=== PATIENT | female | born 1945 | race Hispanic/Latino ===

== ENCOUNTER 2019-01-08 09:12 | Outpatient (CLI) | payer MEDICARE | END 2019-01-08 09:13 | disposition home or self-care (01) | LOC: C.PAT 09:12 | DX: C78.7 Secondary malignant neoplasm of liver and intrahepatic bile duct (principal); Z85.038 Personal history of other malignant neoplasm of large intestine ==

== ENCOUNTER 2019-01-11 08:00 | Inpatient (IN) | payer OTHER ==
[2019-01-08 09:28] VITALS: BMI 23.1
[2019-01-12] MEDS ORDERED: Lidocaine Hydrochloride 0 ML INJ ONE (08:06)
[2019-01-12] MEDS ORDERED: ceFAZolin 1 gm in NS 1 GM/100 ML BAG IVPB ONE ×2 (08:06→13:08)
[2019-01-12] MEDS ORDERED: Bupivacaine 0.25% 20 ML INJ IJ ONE (08:06)
[2019-01-12] MEDS ORDERED: Lidocaine/Epinephrine 1% 1:100000 10 ML IJ ONE (08:07)
[2019-01-12] MEDS ORDERED: Rocuronium 10 mg/ml (5 ml) ONE ×2 (08:09→11:01)
[2019-01-12] MEDS ORDERED: Succinylcholine Chloride 20 mg/ml Syr (5 ml) IV ONE (08:09)
[2019-01-12] MEDS ORDERED: Propofol 10 mg/ml Inj (20 ML) ONE (08:09)
[2019-01-12] MEDS ORDERED: Midazolam 2 MG/2 ML VIAL ONE (08:11)
[2019-01-12] MEDS ORDERED: Phenylephrine 10 mg/ml Inj ONE (09:18)
[2019-01-12] MEDS ORDERED: Neostigmine 1:1000 (1 mg/ml) Inj ONE (13:52)
--- NOTE | 2019-01-12 14:33 | PCM.SURG1 ---
Surgeon's Initial Post Op Note - Surgeon's Notes Surgeon: Dr. Dyer [employer]arry Plant Crusher Operator: Noreen PGY2, Alvin PGY2 Type of Anesthesia: General Endo Anesthesia Administered By: Dr. Taveras Pre-Operative Diagnosis: Metastasis from colon ca in segment 7 of liver Operative Findings: Metastasis from colon ca in segment 7 of liver, adhesions, colostomy Post-Operative Diagnosis: Metastasis from colon ca in segment 7 of liver Operation Performed: Laparoscopic segment 7 resection of liver, lysis of adhesions Specimen/Specimens Removed: segment 7 of liver, falciform ligament Estimated Blood Loss: EBL {In ML}: 400 Blood Products Given: N/A Drains Used: No Drains Post-Op Condition: Good Date of Surgery/Procedure: 01/12/19 Time of Surgery/Procedure: 14:33
[2019-01-12] MEDS ORDERED: HYDROmorphone 0.5 mg/0.5 ml ISec IVP PRN ×2 (14:34→14:35)
[2019-01-12] MEDS ORDERED: Glucagon Recombinant 1 mg Inj IM PRN (14:44)
[2019-01-12] MEDS ORDERED: Dextrose 50% SYRINGE Inj (50 ml) IV PRN (14:44)
[2019-01-12 15:00] LABS: ARTERIAL BLOOD GAS HCO3 19.3 mmol/L (21-28); ARTERIAL BLOOD GAS O2 SAT 98.8 % (95-98); ARTERIAL BLOOD GAS PCO2 44 mm/Hg (35-45); ARTERIAL BLOOD GAS PH 7.26 (7.35-7.45); ARTERIAL BLOOD GAS PO2 102 mm/Hg (80-100); ARTERIAL BLOOD GAS TCO2 21.1 mmol/L (22-28)
[2019-01-12] MEDS ORDERED: Lactated Ringer's 1,000 ML IV ONE ×2 (15:00→15:44)
[2019-01-12 15:16] LABS: BASO % 0.2 % (0.0-2.0); EOS % 0.1 % (0.0-4.0); HEMOGLOBIN 12.2 g/dL (11.0-16.0); LYMPH # 0.3 K/uL (1.0-4.3); MEAN CELL VOLUME 91.5 fL (81.0-99.0); MEAN CORPUSCULAR HEMOGLOBIN 30.9 pg (27.0-31.0); MEAN CORPUSCULAR HGB CONC 33.7 g/dL (33.0-37.0); MEAN PLATELET VOLUME 7.5 fL (7.2-11.7); MONO # 0.7 K/uL (0.0-0.8); MONO % 6.6 % (0.0-10.0); NEUT # 9.5 K/uL (1.8-7.0); NEUT % 90.1 % (50.0-75.0); PLATELET COUNT 199 K/uL (130-400); RBC 3.97 Mil/uL (3.80-5.20); RED CELL DISTRIBUTION WIDTH 13.5 % (11.5-14.5); WHITE BLOOD COUNT 10.5 K/uL (4.8-10.8)
[2019-01-12 15:27] LABS: INR 1.1; PARTIAL THROMBOPLASTIN TIME 27.2 SECONDS (21-34); PROTHROMBIN TIME 11.7 SECONDS (9.7-12.2)
[2019-01-12 15:31] LABS: ALB/GLOB RATIO 1.4 (1.0-2.1); ALBUMIN 3.2 g/dL (3.5-5.0); ALT/SGPT 591 U/L (9-52); AST/SGOT 739 U/L (14-36); BLOOD UREA NITROGEN 12 mg/dL (7-17); CALCIUM 7.6 mg/dl (8.6-10.4); GFR NON-AFRICAN AMERICAN > 60
--- NOTE | 2019-01-12 15:32 | RAD ---
Date of service: 01/12/2019 PROCEDURE: CHEST RADIOGRAPH, 1 VIEW HISTORY: check ngt/ tlc COMPARISON: None available. FINDINGS: LUNGS: Clear. PLEURA: No pneumothorax or pleural fluid seen. CARDIOVASCULAR: No aortic atherosclerotic calcification present. There is curvilinear calcifications seen at the apex of the left ventricle. The possibility of a calcified left ventricular aneurysm should be considered. Recommend evaluation with echocardiography. There is also vertically-oriented curvilinear calcification adjacent to the left side of descending thoracic aorta. Uncertain significance. Nasogastric tube extends to the upper abdomen. Right-sided central venous infusion port noted. OSSEOUS STRUCTURES: No significant abnormalities. VISUALIZED UPPER ABDOMEN: Normal. OTHER FINDINGS: None. IMPRESSION: Nasogastric tube appropriately positioned. Curvilinear calcification the level of the left ventricular apex. Consider the possibility of calcified ventricular aneurysm. Recommend further evaluation with echocardiography.
[2019-01-12 15:59] LABS: BANDS 2 % (0-2); LYMPHOCYTE 1 % (20-40); MONOCYTE 7 % (0-10); NEUTROPHIL 90 % (50-75); PLATELET ESTIMATE NORMAL (NORMAL); TOTAL CELLS COUNTED 100
[2019-01-12] MEDS: Lactated Ringer's 1,000 ML IV SCH ×2 (16:30→21:30)
--- NOTE | 2019-01-12 16:48 | CP.PCM.CON ---
<Zackary Decker - Last Filed: 01/12/19 19:08> History of Present Illness - History of Present Illness History of Present Illness: PGY-1 Critical Care Consult Note for Dr. Manzanares Patient is a 71 year old female with past medical history including colon cancer with liver mets, colostomy, HTN, DM presenting from PACU s/p laparoscopic segment 7 resection of liver with lysis of adhesions. Patient appears nauseous, dry heaving. No other acute complaints. Denies any fevers/chills, headaches, dizziness, chest pain, palpitations, sob, cough, abdominal pain, n/v/d/c. 12 pt ROS reviewed and otherwise negative. PMHx: as stated above PSHx: partial colon resection, chemoport, colostomy, cataracts surgery, dental implants Allergies: NKDA Home Meds: reviewed Family Hx: unknown Social Hx: no alcohol, tobacco, or illicit drug use Review of Systems - Review of Systems All systems: reviewed and no additional remarkable complaints except Review of Systems: as per HPI Past Patient History - Past Medical History & Family History Past Medical History?: Yes - Past Social History Smoking Status: Never Smoked - CARDIAC Hx Cardiac Disorders: Yes Hx Hypercholesterolemia: Yes Hx Hypertension: Yes - PULMONARY Hx Respiratory Disorders: No Hx Pneumonia: Yes (CHILDHOOD) - NEUROLOGICAL 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) - ENDOCRINE/METABOLIC Hx Endocrine Disorders: Yes Hx Diabetes Mellitus Type 2: Yes - HEMATOLOGICAL/ONCOLOGICAL Hx Blood Disorders: Yes Hx Blood Transfusions: Yes (2015) Hx Blood Transfusion Reaction: No Hx Cancer: Yes (RECTAL) Hx Chemotherapy: Yes (PLUS RADIATION) Hx Metastesis: Yes Other/Comment: RECTAL CA - GASTROINTESTINAL Hx Gastrointestinal Disorders: Yes Hx Bowel Surgery: Yes (RESECTION) Hx Colostomy: Yes Hx Gastritis: Yes Hx Gastroesophageal Reflux: Yes Other/Comment: RECTAL CANCER - GENITOURINARY/GYNECOLOGICAL Hx Genitourinary Disorders: Yes Hx Urinary Tract Infection: Yes - PSYCHIATRIC Hx Psychophysiologic Disorder: Yes Hx Anxiety: Yes - SURGICAL HISTORY Hx Surgeries: Yes Hx Cataract Extraction: Yes (BILATERAL IOLI) Hx Cholecystectomy: Yes Hx Vascular Access Device: Yes (LIFEPORT RT CHEST/WILL FLUSH 01/09/19) Other/Comment: DENTAL IMPLANTS - ANESTHESIA Hx Anesthesia: Yes Hx Anesthesia Reactions: No Hx Malignant Hyperthermia: No Has any member of the family had a problem w/ anesthesia?: No Meds Allergies/Adverse Reactions: Allergies Allergy/AdvReac Type Severity Reaction Status Date / Time No Known Allergies Allergy Verified 01/08/19 09:26 - Medications Medications: Current Medications Dextrose (Dextrose 50% Inj) 0 ml IV STAT PRN; Protocol PRN Reason: Hypoglycemia Protocol Dextrose (Glutose 15) 0 gm PO ONCE PRN; Protocol PRN Reason: Hypoglycemia Protocol Enalapril Maleate (Vasotec) 5 mg PO DAILY [facility] Glucagon (Glucagen Diagnostic Kit) 0 mg IM STAT PRN; Protocol PRN Reason: Hypoglycemia Protocol Home Med (Ubiquinol [Ubiquinol]) 100 mg PO DAILY [facility] Hydromorphone HCl (Dilaudid) 0.5 mg IVP Q4H PRN PRN Reason: Pain, severe (8-10) Hydromorphone/Sodium Chloride (Dilaudid Biometrician) 6 mg IV Q4H PRN; Protocol PRN Reason: Pain, Mild (1-3) Lactated Ringer's (Lactated Ringer's) 1,000 mls @ 150 mls/hr IV .Q6H40M [facility] Last Admin: 01/12/19 16:30 Dose: 150 mls/hr Dextrose (Dextrose 5% In Water 1000 Ml) 1,000 mls @ 0 mls/hr IV .Q0M PRN; Protocol PRN Reason: Hypoglycemia Protocol Calcium Gluconate 2,000 mg/ (Sodium Chloride) 270 mls @ 250 mls/hr IVPB ONCE ONE Stop: 01/12/19 16:48 Insulin Aspart (Novolog) 0 unit SC ACHS [facility]; Protocol Ondansetron HCl (Zofran Inj) 4 mg IVP Q6H PRN PRN Reason: Nausea/Vomiting Pantoprazole Sodium (Protonix Inj) 40 mg IVP DAILY [facility] Paroxetine HCl (Paxil) 1 mg PO DAILY [facility] Physical Exam - Constitutional Appears: Non-toxic, No Acute Distress - Head Exam Head Exam: ATRAUMATIC, NORMAL INSPECTION, NORMOCEPHALIC - Eye Exam Eye Exam: EOMI, Normal appearance Pupil Exam: NORMAL ACCOMODATION - ENT Exam ENT Exam: Mucous Membranes Moist, Normal Exam - Neck Exam Neck exam: Positive for: Full Rom, Normal Inspection - Respiratory Exam Respiratory Exam: Clear to Auscultation Bilateral, NORMAL BREATHING PATTERN. absent: Accessory Muscle Use, Rales, Rhonchi, Wheezes, Respiratory Distress, Stridor - Cardiovascular Exam Cardiovascular Exam: REGULAR RHYTHM, +S1, +S2 - GI/Abdominal Exam GI & Abdominal Exam: Normal Bowel Sounds, Soft, Tenderness (appropriate) Additional comments: dressing c/d/i. R GERALD drain with adequate serosanginous drainage. colostomy with adequate output - Extremities Exam Extremities exam: Positive for: normal capillary refill, normal inspection, pedal pulses present. Negative for: calf tenderness, pedal edema - Back Exam Back exam: NORMAL INSPECTION - Neurological Exam Neurological exam: Alert, Oriented x3 - Skin Skin Exam: Dry, Intact, Normal Color, Warm Results - Vital Signs Recent Vital Signs: Last Vital Signs Temp 98.4 F 01/12/19 07:05 Pulse 93 H 01/12/19 16:30 Resp 19 01/12/19 16:30 BP 156/62 H 01/12/19 16:17 Pulse Ox 97 01/12/19 16:30 - Labs Result Diagrams: 01/12/19 15:07 01/12/19 15:07 Labs: Laboratory Results - last 24 hr 01/12/19 01/12/19 01/12/19 06:53 07:02 14:55 WBC RBC Hgb Hct MCV MCH MCHC RDW Plt Count MPV Neut % (Auto) Lymph % (Auto) Garza % (Auto) Eos % (Auto) Baso % (Auto) Neut # (Auto) Lymph # (Auto) Garza # (Auto) Eos # (Auto) Baso # (Auto) Neutrophils % (Manual) Band Neutrophils % Lymphocytes % (Manual) Monocytes % (Manual) Platelet Estimate RBC Morphology PT INR APTT Puncture Site pCO2 pO2 HCO3 ABG pH ABG Total CO2 ABG O2 Saturation ABG Base Excess Aftab Test ABG Potassium Sodium Chloride Glucose Lactate Liter Flow Potassium Carbon Dioxide Anion Gap BUN Creatinine Est GFR ( Amer) Est GFR (Non-Af Amer) POC Glucose (mg/dL) 173 H 263 H Random Glucose Calcium Phosphorus Total Bilirubin AST ALT Alkaline Phosphatase Total Protein Albumin Globulin Albumin/Globulin Ratio Arterial Blood Potassium Blood Type A POSITIVE Antibody Screen Negative 01/12/19 01/12/19 01/12/19 14:56 15:07 15:07 WBC 10.5 RBC 3.97 Hgb 12.2 D Hct 36.3 MCV 91.5 MCH 30.9 MCHC 33.7 RDW 13.5 Plt Count 199 MPV 7.5 Neut % (Auto) 90.1 H Lymph % (Auto) 3.0 L Garza % (Auto) 6.6 Eos % (Auto) 0.1 Baso % (Auto) 0.2 Neut # (Auto) 9.5 H Lymph # (Auto) 0.3 L Garza # (Auto) 0.7 Eos # (Auto) 0.0 Baso # (Auto) 0.0 Neutrophils % (Manual) 90 H Band Neutrophils % 2 Lymphocytes % (Manual) 1 L Monocytes % (Manual) 7 Platelet Estimate Normal RBC Morphology Normal PT 11.7 INR 1.1 APTT 27.2 Puncture Site A line pCO2 44 pO2 102 H HCO3 19.3 L ABG pH 7.26 L ABG Total CO2 21.1 L ABG O2 Saturation 98.8 H ABG Base Excess -7.2 L Aftab Test Na ABG Potassium 3.9 Sodium 140.0 Chloride 111.0 H Glucose 245 H Lactate 1.6 Liter Flow 3.0 Potassium Carbon Dioxide Anion Gap BUN Creatinine Est GFR ( Amer) Est GFR (Non-Af Amer) POC Glucose (mg/dL) Random Glucose Calcium Phosphorus Total Bilirubin AST ALT Alkaline Phosphatase Total Protein Albumin Globulin Albumin/Globulin Ratio Arterial Blood Potassium 3.9 Blood Type Antibody Screen 01/12/19 15:07 WBC RBC Hgb Hct MCV MCH MCHC RDW Plt Count MPV Neut % (Auto) Lymph % (Auto) Garza % (Auto) Eos % (Auto) Baso % (Auto) Neut # (Auto) Lymph # (Auto) Garza # (Auto) Eos # (Auto) Baso # (Auto) Neutrophils % (Manual) Band Neutrophils % Lymphocytes % (Manual) Monocytes % (Manual) Platelet Estimate RBC Morphology PT INR APTT Puncture Site pCO2 pO2 HCO3 ABG pH ABG Total CO2 ABG O2 Saturation ABG Base Excess Aftab Test ABG Potassium Sodium 136 Chloride 109 H Glucose Lactate Liter Flow Potassium 4.1 Carbon Dioxide 22 Anion Gap 10 BUN 12 Creatinine 0.7 Est GFR ( Amer) > 60 Est GFR (Non-Af Amer) > 60 POC Glucose (mg/dL) Random Glucose 254 H D Calcium 7.6 L Phosphorus 3.8 Total Bilirubin 0.4 AST 739 H D ALT 591 H D Alkaline Phosphatase 78 Total Protein 5.5 L Albumin 3.2 L D Globulin 2.3 Albumin/Globulin Ratio 1.4 Arterial Blood Potassium Blood Type Antibody Screen Assessment & Plan - Assessment and Plan (Free Text) Plan: -Metastasis from colon ca in segment 7 of liver -s/p laparoscopic segment 7 resection of liver, lysis of adhesions -pain mgmt per surgical team -hypertension -hydralazine 10 mg IVP q4 prn with holding parameters -labetalol 20 mg IVP q6 prn with holding parameters -DVT/GI ppx -Carb consistent diet -Continue to monitor Further recs as per Dr. Leighton Decker DO, PGY-1 <Niurka Manzanares M - Last Filed: 01/13/19 16:27> Meds - Medications Medications: Current Medications Dextrose (Dextrose 50% Inj) 0 ml IV STAT PRN; Protocol PRN Reason: Hypoglycemia Protocol Dextrose (Glutose 15) 0 gm PO ONCE PRN; Protocol PRN Reason: Hypoglycemia Protocol Enalapril Maleate (Vasotec) 5 mg PO DAILY [facility] Last Admin: 01/13/19 09:25 Dose: 5 mg Glucagon (Glucagen Diagnostic Kit) 0 mg IM STAT PRN; Protocol PRN Reason: Hypoglycemia Protocol Heparin Sodium (Porcine) (Heparin) 5,000 units SC Q8 [facility] Last Admin: 01/13/19 14:35 Dose: 5,000 units Hydralazine HCl (Apresoline) 10 mg IVP Q4H PRN PRN Reason: Systolic Blood Pressure Hydromorphone HCl (Dilaudid) 2 mg PO Q4H PRN PRN Reason: Pain, moderate (4-7) Lactated Ringer's (Lactated Ringer's) 1,000 mls @ 150 mls/hr IV .Q6H40M [facility] Last Admin: 01/13/19 10:14 Dose: 150 mls/hr Dextrose (Dextrose 5% In Water 1000 Ml) 1,000 mls @ 0 mls/hr IV .Q0M PRN; Protocol PRN Reason: Hypoglycemia Protocol Insulin Aspart (Novolog) 0 unit SC ACHS [facility]; Protocol Last Admin: 01/13/19 12:16 Dose: 3 units Labetalol HCl (Trandate) 20 mg IVP Q6H PRN PRN Reason: Heart rate Ondansetron HCl (Zofran Inj) 4 mg IVP Q6H PRN PRN Reason: Nausea/Vomiting Last Admin: 01/13/19 08:50 Dose: 4 mg Pantoprazole Sodium (Protonix Inj) 40 mg IVP DAILY [facility] Last Admin: 01/13/19 09:24 Dose: 40 mg Paroxetine HCl (Paxil) 20 mg PO DAILY [facility] Last Admin: 01/13/19 09:25 Dose: 20 mg Results - Vital Signs Recent Vital Signs: Last Vital Signs Temp 97 F L 01/13/19 16:00 Pulse 103 H 01/13/19 16:00 Resp 20 01/13/19 16:00 BP 130/51 L 01/13/19 15:16 Pulse Ox 92 L 01/13/19 16:00 - Labs Result Diagrams: 01/13/19 06:21 01/13/19 06:21 Labs: Laboratory Results - last 24 hr 01/13/19 01/13/19 01/13/19 06:21 06:21 06:21 WBC 9.7 RBC 3.87 Hgb 11.8 Hct 35.4 MCV 91.5 MCH 30.5 MCHC 33.4 RDW 13.6 Plt Count 179 MPV 7.9 Neut % (Auto) 87.4 H Lymph % (Auto) 5.9 L Garza % (Auto) 6.4 Eos % (Auto) 0.1 Baso % (Auto) 0.2 Neut # (Auto) 8.5 H Lymph # (Auto) 0.6 L Garza # (Auto) 0.6 Eos # (Auto) 0.0 Baso # (Auto) 0.0 Neutrophils % (Manual) 88 H Band Neutrophils % 2 Lymphocytes % (Manual) 5 L Monocytes % (Manual) 5 Toxic Granulation Present Platelet Estimate Normal Polychromasia Slight Basophilic Stippling Slight Anisocytosis (manual) Slight PT 12.4 H INR 1.1 APTT 29.1 Sodium 136 Potassium 3.9 Chloride 104 Carbon Dioxide 26 Anion Gap 10 BUN 12 Creatinine 0.7 Est GFR ( Amer) > 60 Est GFR (Non-Af Amer) > 60 Random Glucose 138 H D Calcium 8.4 L Phosphorus 2.6 Magnesium 1.7 Total Bilirubin 0.6 AST 526 H D ALT 461 H D Alkaline Phosphatase 68 Total Protein 5.3 L Albumin 2.9 L Globulin 2.4 Albumin/Globulin Ratio 1.2 Assessment & Plan - Assessment and Plan (Free Text) Plan: Patient seen and examined post procedure. -extubated, continue incentive spirometry -continue monitor BP since NPO by IV PRN -IVF, monitor urine output --start oral diet when surgery agrees -Patient remains hemodynamically stable. - Date & Time Date: 01/12/19 Time: 21:00
[2019-01-12] MEDS: (Novolog) Insulin Aspart, Recombinant 100 u/ml 10 ml vial SC SCH ×2 (17:17→21:35)
[2019-01-12] MEDS ORDERED: Labetalol 5mg/ml (4ml) IVP ONE (17:48)
[2019-01-12] MEDS ORDERED: Labetalol 5mg/ml (4ml) IVP PRN (17:54)
[2019-01-13] MEDS: Lactated Ringer's 1,000 ML IV SCH ×3 (04:35→17:50)
[2019-01-13 06:27] LABS: BASO % 0.2 % (0.0-2.0); EOS % 0.1 % (0.0-4.0); HEMOGLOBIN 11.8 g/dL (11.0-16.0); LYMPH # 0.6 K/uL (1.0-4.3); LYMPH % 5.9 % (20.0-40.0); MEAN CELL VOLUME 91.5 fL (81.0-99.0); MEAN CORPUSCULAR HEMOGLOBIN 30.5 pg (27.0-31.0); MEAN CORPUSCULAR HGB CONC 33.4 g/dL (33.0-37.0); MEAN PLATELET VOLUME 7.9 fL (7.2-11.7); MONO # 0.6 K/uL (0.0-0.8); MONO % 6.4 % (0.0-10.0); NEUT # 8.5 K/uL (1.8-7.0); NEUT % 87.4 % (50.0-75.0); PLATELET COUNT 179 K/uL (130-400); RBC 3.87 Mil/uL (3.80-5.20); RED CELL DISTRIBUTION WIDTH 13.6 % (11.5-14.5); WHITE BLOOD COUNT 9.7 K/uL (4.8-10.8)
[2019-01-13 06:37] LABS: INR 1.1; PARTIAL THROMBOPLASTIN TIME 29.1 SECONDS (21-34); PROTHROMBIN TIME 12.4 SECONDS (9.7-12.2)
[2019-01-13 06:45] LABS: ALB/GLOB RATIO 1.2 (1.0-2.1); ALBUMIN 2.9 g/dL (3.5-5.0); ALT/SGPT 461 U/L (9-52); AST/SGOT 526 U/L (14-36); BLOOD UREA NITROGEN 12 mg/dL (7-17); CALCIUM 8.4 mg/dl (8.6-10.4); GFR NON-AFRICAN AMERICAN > 60
--- NOTE | 2019-01-13 08:01 | CP.PCM.PN ---
<AlvinCdoy ryan - Last Filed: 01/13/19 07:57> Subjective - Date & Time of Evaluation Date of Evaluation: 01/13/19 Time of Evaluation: 05:45 - Subjective Subjective: HBP Surgery Progress note. Dr. Dyer Pt seen and examined at bedside. No acute events overnight. Jarvis in place with 850cc UOP overnight. Edmond with 180cc serosang output overnight. Pain well controlled. Had one episode of emesis, minimal output, yesterday evening. Denies any episodes since. Dressing intact. No new complaints. Objective - Vital Signs/Intake and Output Vital Signs (last 24 hours): Temp Pulse Resp BP Pulse Ox 98.3 F 72 21 135/47 L 97 01/13/19 04:00 01/13/19 06:10 01/13/19 06:10 01/13/19 06:10 01/13/19 06:10 Intake and Output: 01/13/19 01/13/19 06:59 18:59 Intake Total 1800 Output Total 1030 Balance 770 - Medications Medications: Current Medications Dextrose (Dextrose 50% Inj) 0 ml IV STAT PRN; Protocol PRN Reason: Hypoglycemia Protocol Dextrose (Glutose 15) 0 gm PO ONCE PRN; Protocol PRN Reason: Hypoglycemia Protocol Enalapril Maleate (Vasotec) 5 mg PO DAILY [facility] Glucagon (Glucagen Diagnostic Kit) 0 mg IM STAT PRN; Protocol PRN Reason: Hypoglycemia Protocol Home Med (Ubiquinol [Ubiquinol]) 100 mg PO DAILY [facility] Hydralazine HCl (Apresoline) 10 mg IVP Q4H PRN PRN Reason: Systolic Blood Pressure Hydromorphone HCl (Dilaudid) 0.5 mg IVP Q4H PRN PRN Reason: Pain, severe (8-10) Hydromorphone/Sodium Chloride (Dilaudid Theoretical Physicist) 6 mg IV Q4H PRN; Protocol PRN Reason: Pain, Mild (1-3) Last Admin: 01/12/19 17:18 Dose: 6 mg Lactated Ringer's (Lactated Ringer's) 1,000 mls @ 150 mls/hr IV .Q6H40M [facility] Last Admin: 01/13/19 04:35 Dose: 150 mls/hr Dextrose (Dextrose 5% In Water 1000 Ml) 1,000 mls @ 0 mls/hr IV .Q0M PRN; Protocol PRN Reason: Hypoglycemia Protocol Insulin Aspart (Novolog) 0 unit SC ACHS [facility]; Protocol Last Admin: 01/12/19 21:35 Dose: Not Given Labetalol HCl (Trandate) 20 mg IVP Q6H PRN PRN Reason: Heart rate Ondansetron HCl (Zofran Inj) 4 mg IVP Q6H PRN PRN Reason: Nausea/Vomiting Last Admin: 01/12/19 17:58 Dose: 4 mg Pantoprazole Sodium (Protonix Inj) 40 mg IVP DAILY [facility] Paroxetine HCl (Paxil) 20 mg PO DAILY [facility] - Labs Labs: 01/13/19 06:21 01/13/19 06:21 PT 12.4 SECONDS (9.7-12.2) H 01/13/19 06:21 INR 1.1 01/13/19 06:21 APTT 29.1 SECONDS (21-34) 01/13/19 06:21 - Constitutional Appears: Well, Non-toxic, No Acute Distress - Head Exam Head Exam: ATRAUMATIC, NORMAL INSPECTION, NORMOCEPHALIC - Eye Exam Eye Exam: EOMI, Normal appearance. absent: Scleral icterus - ENT Exam ENT Exam: Mucous Membranes Moist - Respiratory Exam Respiratory Exam: NORMAL BREATHING PATTERN. absent: Accessory Muscle Use, Respiratory Distress - Cardiovascular Exam Cardiovascular Exam: absent: JVD - GI/Abdominal Exam GI & Abdominal Exam: Soft. absent: Distended, Firm, Guarding, Rebound Additional comments: Mild anabelle-incisional tenderness. Edmond in place with serosang output, 180cc overnight. - Extremities Exam Extremities Exam: Normal Inspection. absent: Calf Tenderness - Neurological Exam Neurological Exam: Alert, Awake, Oriented x3 - Psychiatric Exam Psychiatric exam: Normal Affect, Normal Mood - Skin Skin Exam: Dry, Intact, Normal Color, Warm Assessment and Plan - Assessment and Plan (Free Text) Assessment: 73yo F with Hx of Rectal CA s/p resection then with evidence of single metastasis to segment 7. Now S/p Lap Segment 7 Liver Resection. POD 1. Plan: - d/c Jarvis - d/c A. Line - d/c Dilaudid AIR PUMPER - Continue diet - Out of bed to chair this morning. Encourage Ambulation - Maintain Edmond. Monitor outputs - Pain control: PO Dilaudid - f/u path - Replete Phos to maintain >3.0 Further recs as per Dr. Walsh PGY2 surgery <Cameron Finch N - Last Filed: 01/14/19 12:24> Objective - Vital Signs/Intake and Output Vital Signs (last 24 hours): Temp Pulse Resp BP Pulse Ox 99 F 92 H 25 H 161/63 H 97 01/14/19 08:00 01/14/19 11:20 01/14/19 11:20 01/14/19 11:20 01/14/19 11:20 Intake and Output: 01/14/19 01/14/19 06:59 18:59 Intake Total 1240 751 Output Total 1185 490 Balance 55 261 - Medications Medications: Current Medications Dextrose (Dextrose 50% Inj) 0 ml IV STAT PRN; Protocol PRN Reason: Hypoglycemia Protocol Dextrose (Glutose 15) 0 gm PO ONCE PRN; Protocol PRN Reason: Hypoglycemia Protocol Enalapril Maleate (Vasotec) 5 mg PO DAILY [facility] Last Admin: 01/14/19 09:22 Dose: 5 mg Glucagon (Glucagen Diagnostic Kit) 0 mg IM STAT PRN; Protocol PRN Reason: Hypoglycemia Protocol Heparin Sodium (Porcine) (Heparin) 5,000 units SC Q8 [facility] Last Admin: 01/14/19 06:01 Dose: 5,000 units Hydralazine HCl (Apresoline) 10 mg IVP Q4H PRN PRN Reason: Systolic Blood Pressure Last Admin: 01/14/19 11:36 Dose: 10 mg Dextrose (Dextrose 5% In Water 1000 Ml) 1,000 mls @ 0 mls/hr IV .Q0M PRN; Protocol PRN Reason: Hypoglycemia Protocol Potassium Phosphate 30 mmole/ (Sodium Chloride) 260 mls @ 63 mls/hr IV ONCE ONE Stop: 01/14/19 14:07 Last Admin: 01/14/19 09:25 Dose: 63 mls/hr Insulin Aspart (Novolog) 0 unit SC ACHS [facility]; Protocol Last Admin: 01/14/19 07:34 Dose: Not Given Labetalol HCl (Trandate) 20 mg IVP Q6H PRN PRN Reason: Heart rate Ondansetron HCl (Zofran Inj) 4 mg IVP Q6H PRN PRN Reason: Nausea/Vomiting Last Admin: 01/13/19 08:50 Dose: 4 mg Pantoprazole Sodium (Protonix Inj) 40 mg IVP DAILY [facility] Last Admin: 01/14/19 09:08 Dose: 40 mg Paroxetine HCl (Paxil) 20 mg PO DAILY [facility] Last Admin: 01/14/19 09:08 Dose: 20 mg Potassium Phos/Sodium Phos (Neutra-Phos) 1 pkt PO TID [facility] Last Admin: 01/14/19 09:13 Dose: Not Given Tramadol HCl (Ultram) 50 mg PO TID PRN PRN Reason: Pain, severe (8-10) - Labs Labs: 01/14/19 05:56 01/14/19 05:56 PT 13.2 SECONDS (9.7-12.2) H 01/14/19 05:56 INR 1.2 01/14/19 05:56 APTT 38.1 SECONDS (21-34) H D 01/14/19 05:56 Assessment and Plan - Assessment and Plan (Free Text) Plan: All medical record entries made by the resident were at my direction. I have reviewed the chart and agree that the record accurately reflects my personal performance of the history, physical exam, and medical decision making.
[2019-01-13] MEDS: (Novolog) Insulin Aspart, Recombinant 100 u/ml 10 ml vial SC SCH ×4 (08:30→21:26)
[2019-01-13 08:33] LABS: ANISOCYTOSIS SLIGHT; BANDS 2 % (0-2); LYMPHOCYTE 5 % (20-40); MONOCYTE 5 % (0-10); NEUTROPHIL 88 % (50-75); PLATELET ESTIMATE NORMAL (NORMAL); TOTAL CELLS COUNTED 100
[2019-01-13 08:34] LABS: POLYCHROMIC SLIGHT
[2019-01-13 08:36] LABS: TOXIC GRANULATION PRESENT
[2019-01-13] MEDS: Magnesium Sulfate 1 gm in D5W 1 GM/100 ML BAG IVPB SCH ×2 (08:49→09:37)
[2019-01-13] MEDS ORDERED: Potassium Phosphate 30 MMOLE in Sodium Chloride 0.9% 250 ML IV ONE (09:30)
--- NOTE | 2019-01-13 09:33 | OP ---
PROCEDURE DATE: 01/12/2019 SURGEON: Cameron Dyer MD FIRST ASSISTANTS: Connor Sorto DO and Cody Esquivel DO. ANESTHESIOLOGIST: Doretha Oh MD ANESTHESIA: General. PREOPERATIVE DIAGNOSIS: Metastatic colorectal cancer to the liver, segment 7. POSTOPERATIVE DIAGNOSIS: Metastatic colorectal cancer to the liver, segment 7. INDICATION: This is a 73-year-old female, who had colon cancer several years ago, requiring a colostomy. She is post chemotherapy. Her followup PET CT shows evidence of activity in segment 7 of her liver of about 2.5 x 2.5 cm. She underwent a chest CT and an MRI. There were no other sites of suspicion noted. As such, she now comes in for elective laparoscopic segment 7 resection. DESCRIPTION OF PROCEDURE: The patient was taken to the OR and placed in supine position. She was orotracheally intubated and general anesthesia was induced. The patient was sterilely prepped and draped. After, a Jarvis catheter, NG tube, right central line as well as art-line were placed. Then, her abdomen was sterilely prepped and draped and time-out was performed. She had a supraumbilical incision for a 5-mm port site. Using a Veress needle, the abdomen was accessed and insufflated to 15 mmHg. After which, a 5-mm supraumbilical port was placed. She had a 12-mm subxiphoid port placed as well as two right lateral 5-mm and 12-mm ports placed. Then, a laparoscope was placed inside. The abdomen was explored. There was no evidence of extrahepatic disease. No evidence of metastasis on her peritoneum or the round ligament. At this point, her round ligament was divided into the falciform ligament. The falciform ligament was divided using Harmonic scalpel. We entered the bare area and then divided the bare area until we could visualize the anterior surface of the vena cava. The patient has had a prior cholecystectomy. So, there were elements of her omentum within her prior gallbladder fossa. The adhesions were lysed using a Harmonic scalpel and the right lobe of the liver was freed. We then went further to clean out the hepatoduodenal ligament, such that we can place our umbilical tape for Parkton maneuver. We then commenced to divide our right triangular ligament from the most lateral aspect, working medially. The 10-mm fan retractor was placed intra-abdominally and used to retract the liver to expose the lateral aspect of the right triangular ligament. This was divided using a combination of electrocautery and Harmonic scalpel. As the right triangular ligament was further exposed, we then introduced a 10-mm packing tape about 2.5 feet into the abdomen. We then wrapped it around the right lobe of the liver and then we exited the tape alongside the 12-mm subxiphoid port. The liver was then retracted gently away from the diaphragm and we commenced to divide the right triangular ligament and then we changed the position of our camera to more superior, so we can see over the dome and continue to divide the right triangular ligament with hook cautery, working anteriorly and then posterolaterally, retracting the liver away from the diaphragm. With the combination of the fan retractor and the sling, we were able to fully divide the right triangular ligament. We then continued posterior inferiorly at the aspect of the right triangular ligament. We continued to divide it with electrocautery, the liver was and rolled off the perinephric fat. We then were able to visualize the vena cava and as we visualized the vena cava, we rolled the liver from right to left such that we can follow the entire right side wall of the vena cava all the way to the right hepatic vein. There was no need to divide any short hepatic as the liver was freely mobile. At this point, we introduced the laparoscopic ultrasound intra-abdominally. We then confirmed the location of the liver mass at which point, we outlined the resection margins. Using Argon beam, we scored the liver surface and then using ultrasound, we then approximated the depth of our resection to be about 4.5 cm to 5 cm. At this point, we then used a Goldfinger to get an umbilical tape around the hepatic hilar structures. We then were able to get the umbilical tape around the hepatoduodenal ligament and then we triple clipped the two ends and then cut the remainder off and removed it via the lap ports. Then, we commenced to finalize our mobilization of the right lobe. At this point in time, using a laparoscopic bulldog clamp, we placed it on the umbilical tape and then we pushed down with our bulldog clamp. At this point, we had inflow occlusion. We then commenced our parenchymal transection using Harmonic scalpel. Using Harmonic scalpel, we then cut along the border of segment 7 and 8 posteriorly and then we continued along the inferior border as well. In this fashion, we then outlined the border of the surface of segment 7. Then, we commenced to divide the liver tissue with Harmonic scalpel. The liver was fairly soft and probably fatty from the chemotherapy. There was some oozing from the cut surface, which we controlled with Argon beam coagulation. We continued the remainder of our parenchymal dissection using Endovascular KAROLINA vascular loads 60 mm in length. Under direct visualization, the anvil of the Osino was gently slid into the liver tissue under ultrasound guidance and then, we commenced to continue to divide the liver tissue. There was some oozing from the liver edge, but no significant bleeding. Bleeding was controlled from the cut surface of the liver using Argon beam. Then, we continued our transection of the liver tissue with Osino endovascular KAROLINA-60 load and we completed our removal of segment 7. At this point, the cut surface of the liver was Argon beam coagulated for hemostasis. Our clamp was released at 20 minutes. Then, we continued hemostasis of the cut surface of the liver edge. At this point, a specimen bag was placed at the 12 port and the specimen was placed in the bag and then we extended the supraumbilical incision, so we can remove the specimen. There was good hemostasis, we continued to Argon beam the cut surface of the liver. The specimen was examined at the back table. There was good 2-cm margins. Then, at that point, we irrigated the abdomen. We continued hemostasis of the cut surface of the liver and a 15-Edmond drain was left along the left lateral border, gutter of the liver and there was good hemostasis. The 15-Edmond was externalized. The supraumbilical incision was closed with interrupted 0-Vicryl and Veress needle. The ports were removed under direct visualization. Prior to this, the umbilical tape from the Angy was removed. The 1-mm packing tape was likewise removed and then the ports removed. The 12 port site had interrupted Vicryl placed. The skin was closed with subcuticular Monocryl covered by Dermabond. The patient was reversed from general anesthesia and extubated on the table. The specimen was sent to pathology. Estimated blood loss was about 400 mL. The patient received about 2.5 L of crystalloid. Ancef was given twice during the operation. The patient was extubated on the table and transferred to the recovery room. Specimen sent to pathology. There were no complications. Cameron Dyer M.D. MTDMike
[2019-01-13] MEDS ORDERED: UBIQUINOL 100 MG PO SCH (10:00)
--- NOTE | 2019-01-13 17:46 | CP.PCM.PN ---
Subjective - Date & Time of Evaluation Date of Evaluation: 01/13/19 Time of Evaluation: 17:44 - Subjective Subjective: Patient awake, alert denies any chest pain (+)flatus, primary team started oral diet Objective - Vital Signs/Intake and Output Vital Signs (last 24 hours): Temp Pulse Resp BP Pulse Ox 97 F L 103 H 20 130/51 L 92 L 01/13/19 16:00 01/13/19 16:00 01/13/19 16:00 01/13/19 15:16 01/13/19 16:00 Intake and Output: 01/13/19 01/13/19 06:59 18:59 Intake Total 1800 2128.5 Output Total 1030 520 Balance 770 1608.5 - Medications Medications: Current Medications Dextrose (Dextrose 50% Inj) 0 ml IV STAT PRN; Protocol PRN Reason: Hypoglycemia Protocol Dextrose (Glutose 15) 0 gm PO ONCE PRN; Protocol PRN Reason: Hypoglycemia Protocol Enalapril Maleate (Vasotec) 5 mg PO DAILY [facility] Last Admin: 01/13/19 09:25 Dose: 5 mg Glucagon (Glucagen Diagnostic Kit) 0 mg IM STAT PRN; Protocol PRN Reason: Hypoglycemia Protocol Heparin Sodium (Porcine) (Heparin) 5,000 units SC Q8 [facility] Last Admin: 01/13/19 14:35 Dose: 5,000 units Hydralazine HCl (Apresoline) 10 mg IVP Q4H PRN PRN Reason: Systolic Blood Pressure Hydromorphone HCl (Dilaudid) 2 mg PO Q4H PRN PRN Reason: Pain, moderate (4-7) Lactated Ringer's (Lactated Ringer's) 1,000 mls @ 150 mls/hr IV .Q6H40M [facility] Last Admin: 01/13/19 10:14 Dose: 150 mls/hr Dextrose (Dextrose 5% In Water 1000 Ml) 1,000 mls @ 0 mls/hr IV .Q0M PRN; Protocol PRN Reason: Hypoglycemia Protocol Insulin Aspart (Novolog) 0 unit SC ACHS [facility]; Protocol Last Admin: 01/13/19 12:16 Dose: 3 units Labetalol HCl (Trandate) 20 mg IVP Q6H PRN PRN Reason: Heart rate Ondansetron HCl (Zofran Inj) 4 mg IVP Q6H PRN PRN Reason: Nausea/Vomiting Last Admin: 01/13/19 08:50 Dose: 4 mg Pantoprazole Sodium (Protonix Inj) 40 mg IVP DAILY [facility] Last Admin: 01/13/19 09:24 Dose: 40 mg Paroxetine HCl (Paxil) 20 mg PO DAILY [facility] Last Admin: 01/13/19 09:25 Dose: 20 mg - Labs Labs: 01/13/19 06:21 01/13/19 06:21 PT 12.4 SECONDS (9.7-12.2) H 01/13/19 06:21 INR 1.1 01/13/19 06:21 APTT 29.1 SECONDS (21-34) 01/13/19 06:21 - Head Exam Head Exam: ATRAUMATIC, NORMAL INSPECTION, NORMOCEPHALIC - Eye Exam Eye Exam: EOMI - ENT Exam ENT Exam: Mucous Membranes Moist - Respiratory Exam Respiratory Exam: Clear to Ausculation Bilateral, NORMAL BREATHING PATTERN - Cardiovascular Exam Cardiovascular Exam: REGULAR RHYTHM, +S1, +S2 - GI/Abdominal Exam GI & Abdominal Exam: Soft, Tenderness, Normal Bowel Sounds Additional comments: tenderness at surgical site - Extremities Exam Extremities Exam: Full ROM, Normal Inspection - Back Exam Back Exam: NORMAL INSPECTION - Neurological Exam Neurological Exam: Alert, Awake, Oriented x3 - Skin Skin Exam: Normal Color, Warm Assessment and Plan - Assessment and Plan (Free Text) Assessment: POD #2 liver resection -Metastasis from colon ca in segment 7 of liver -s/p laparoscopic segment 7 resection of liver, lysis of adhesions -pain mgmt per surgical team -hypertension: controlled -continue DVT/GI ppx -tolerating oral diet -if tolerating oral diet, decrease IVF to 75 ml/hr -continue to monitor -Patient remains hemodynamically stable
[2019-01-14 06:04] LABS: BASO % 0.3 % (0.0-2.0); EOS % 0.4 % (0.0-4.0); HEMOGLOBIN 10.4 g/dL (11.0-16.0); LYMPH # 0.5 K/uL (1.0-4.3); LYMPH % 6.1 % (20.0-40.0); MEAN CELL VOLUME 91.3 fL (81.0-99.0); MEAN CORPUSCULAR HEMOGLOBIN 30.4 pg (27.0-31.0); MEAN CORPUSCULAR HGB CONC 33.3 g/dL (33.0-37.0); MEAN PLATELET VOLUME 7.9 fL (7.2-11.7); MONO # 0.6 K/uL (0.0-0.8); MONO % 6.9 % (0.0-10.0); NEUT # 7.7 K/uL (1.8-7.0); NEUT % 86.3 % (50.0-75.0); PLATELET COUNT 132 K/uL (130-400); RBC 3.42 Mil/uL (3.80-5.20); RED CELL DISTRIBUTION WIDTH 13.6 % (11.5-14.5)
[2019-01-14] MEDS: Lactated Ringer's 1,000 ML IV SCH (06:07)
[2019-01-14 06:08] LABS: INR 1.2; PARTIAL THROMBOPLASTIN TIME 38.1 SECONDS (21-34); PROTHROMBIN TIME 13.2 SECONDS (9.7-12.2)
[2019-01-14 06:22] LABS: ALB/GLOB RATIO 1.2 (1.0-2.1); ALBUMIN 2.7 g/dL (3.5-5.0); ALT/SGPT 331 U/L (9-52); AST/SGOT 258 U/L (14-36); BLOOD UREA NITROGEN 9 mg/dL (7-17); CALCIUM 7.9 mg/dl (8.6-10.4); GFR NON-AFRICAN AMERICAN > 60
[2019-01-14] MEDS ORDERED: Potassium & Sodium Phosphate PO ONE (07:30)
[2019-01-14] MEDS: (Novolog) Insulin Aspart, Recombinant 100 u/ml 10 ml vial SC SCH ×4 (07:34→21:53)
--- NOTE | 2019-01-14 07:35 | CP.PCM.PN ---
<Amrik Mary - Last Filed: 01/14/19 07:39> Subjective - Date & Time of Evaluation Date of Evaluation: 01/14/19 Time of Evaluation: 07:32 - Subjective Subjective: Surgery Progress Note for Dr. Dyer 73F seen and evaluated at bedside this morning. No acute events overnight. No complaints this morning. Pain controlled. Tolerated diet however ate small amounts as it made her nauseous. Flatus in ostomy bag, no BM. Voiding without difficulty. OOBTC yesterday. Drain output 165 serosanguinous overnight. Remove L TLC today. Denies f/c, n/v/d, SOB, CP, or urinary symptoms. Objective - Vital Signs/Intake and Output Vital Signs (last 24 hours): Temp Pulse Resp BP Pulse Ox 98.7 F 93 H 21 147/60 93 L 01/14/19 04:00 01/14/19 06:00 01/14/19 06:00 01/14/19 06:00 01/14/19 06:00 Intake and Output: 01/14/19 01/14/19 06:59 18:59 Intake Total 1240 Output Total 1185 Balance 55 - Medications Medications: Current Medications Dextrose (Dextrose 50% Inj) 0 ml IV STAT PRN; Protocol PRN Reason: Hypoglycemia Protocol Dextrose (Glutose 15) 0 gm PO ONCE PRN; Protocol PRN Reason: Hypoglycemia Protocol Enalapril Maleate (Vasotec) 5 mg PO DAILY [facility] Last Admin: 01/13/19 09:25 Dose: 5 mg Glucagon (Glucagen Diagnostic Kit) 0 mg IM STAT PRN; Protocol PRN Reason: Hypoglycemia Protocol Heparin Sodium (Porcine) (Heparin) 5,000 units SC Q8 [facility] Last Admin: 01/14/19 06:01 Dose: 5,000 units Hydralazine HCl (Apresoline) 10 mg IVP Q4H PRN PRN Reason: Systolic Blood Pressure Hydromorphone HCl (Dilaudid) 2 mg PO Q4H PRN PRN Reason: Pain, moderate (4-7) Dextrose (Dextrose 5% In Water 1000 Ml) 1,000 mls @ 0 mls/hr IV .Q0M PRN; Protocol PRN Reason: Hypoglycemia Protocol Lactated Ringer's (Lactated Ringer's) 1,000 mls @ 75 mls/hr IV .[id number] [facility] Last Admin: 01/14/19 06:07 Dose: 75 mls/hr Insulin Aspart (Novolog) 0 unit SC ACHS [facility]; Protocol Last Admin: 01/13/19 21:26 Dose: Not Given Labetalol HCl (Trandate) 20 mg IVP Q6H PRN PRN Reason: Heart rate Ondansetron HCl (Zofran Inj) 4 mg IVP Q6H PRN PRN Reason: Nausea/Vomiting Last Admin: 01/13/19 08:50 Dose: 4 mg Pantoprazole Sodium (Protonix Inj) 40 mg IVP DAILY [facility] Last Admin: 01/13/19 09:24 Dose: 40 mg Paroxetine HCl (Paxil) 20 mg PO DAILY [facility] Last Admin: 01/13/19 09:25 Dose: 20 mg Potassium Chloride (K-Dur 20 Meq Er Tab) 20 meq PO DAILY [facility] Potassium Phos/Sodium Phos (Neutra-Phos) 1 pkt PO ONCE ONE Stop: 01/14/19 07:31 - Labs Labs: 01/14/19 05:56 01/14/19 05:56 PT 13.2 SECONDS (9.7-12.2) H 01/14/19 05:56 INR 1.2 01/14/19 05:56 APTT 38.1 SECONDS (21-34) H D 01/14/19 05:56 - Constitutional Appears: Well, Non-toxic, No Acute Distress - Head Exam Head Exam: ATRAUMATIC, NORMAL INSPECTION, NORMOCEPHALIC - Eye Exam Eye Exam: EOMI Pupil Exam: PERRL - ENT Exam ENT Exam: Mucous Membranes Moist - Respiratory Exam Respiratory Exam: NORMAL BREATHING PATTERN. absent: Wheezes, Respiratory Distress - GI/Abdominal Exam GI & Abdominal Exam: Soft, Normal Bowel Sounds. absent: Distended, Rigid, Tenderness, Rebound Additional comments: incisions c/d/i right side drain site c/d/i - Extremities Exam Extremities Exam: Normal Inspection - Neurological Exam Neurological Exam: Alert, Awake, Oriented x3 - Psychiatric Exam Psychiatric exam: Normal Affect, Normal Mood - Skin Skin Exam: Dry, Intact, Normal Color, Warm Assessment and Plan - Assessment and Plan (Free Text) Assessment: 73F s/p laparoscopic segment 7 resection w/ lysis of adhesions POD2 Plan: CCD as tolerated Monitor diet tolerance Monitor return of bowel function Remove TLC today PO analgesics Antiemetics PRN Monitor hilaria drain output - may remove today Encourage OOBTC, ambulation Encourage IS use Electrolytes repleted FU pathology report Discharge planning D/w Dr. Gonzales PGY1 <Cameron Finch N - Last Filed: 01/14/19 12:17> Objective - Vital Signs/Intake and Output Vital Signs (last 24 hours): Temp Pulse Resp BP Pulse Ox 99 F 92 H 25 H 161/63 H 97 01/14/19 08:00 01/14/19 11:20 01/14/19 11:20 01/14/19 11:20 01/14/19 11:20 Intake and Output: 01/14/19 01/14/19 06:59 18:59 Intake Total 1240 751 Output Total 1185 490 Balance 55 261 - Medications Medications: Current Medications Dextrose (Dextrose 50% Inj) 0 ml IV STAT PRN; Protocol PRN Reason: Hypoglycemia Protocol Dextrose (Glutose 15) 0 gm PO ONCE PRN; Protocol PRN Reason: Hypoglycemia Protocol Enalapril Maleate (Vasotec) 5 mg PO DAILY [facility] Last Admin: 01/14/19 09:22 Dose: 5 mg Glucagon (Glucagen Diagnostic Kit) 0 mg IM STAT PRN; Protocol PRN Reason: Hypoglycemia Protocol Heparin Sodium (Porcine) (Heparin) 5,000 units SC Q8 [facility] Last Admin: 01/14/19 06:01 Dose: 5,000 units Hydralazine HCl (Apresoline) 10 mg IVP Q4H PRN PRN Reason: Systolic Blood Pressure Last Admin: 01/14/19 11:36 Dose: 10 mg Dextrose (Dextrose 5% In Water 1000 Ml) 1,000 mls @ 0 mls/hr IV .Q0M PRN; Protocol PRN Reason: Hypoglycemia Protocol Potassium Phosphate 30 mmole/ (Sodium Chloride) 260 mls @ 63 mls/hr IV ONCE ONE Stop: 01/14/19 14:07 Last Admin: 01/14/19 09:25 Dose: 63 mls/hr Insulin Aspart (Novolog) 0 unit SC ACHS [facility]; Protocol Last Admin: 01/14/19 07:34 Dose: Not Given Labetalol HCl (Trandate) 20 mg IVP Q6H PRN PRN Reason: Heart rate Ondansetron HCl (Zofran Inj) 4 mg IVP Q6H PRN PRN Reason: Nausea/Vomiting Last Admin: 01/13/19 08:50 Dose: 4 mg Pantoprazole Sodium (Protonix Inj) 40 mg IVP DAILY [facility] Last Admin: 01/14/19 09:08 Dose: 40 mg Paroxetine HCl (Paxil) 20 mg PO DAILY [facility] Last Admin: 01/14/19 09:08 Dose: 20 mg Potassium Phos/Sodium Phos (Neutra-Phos) 1 pkt PO TID [facility] Last Admin: 01/14/19 09:13 Dose: Not Given Tramadol HCl (Ultram) 50 mg PO TID PRN PRN Reason: Pain, severe (8-10) - Labs Labs: 01/14/19 05:56 01/14/19 05:56 PT 13.2 SECONDS (9.7-12.2) H 01/14/19 05:56 INR 1.2 01/14/19 05:56 APTT 38.1 SECONDS (21-34) H D 01/14/19 05:56 Assessment and Plan - Assessment and Plan (Free Text) Plan: All medical record entries made by the resident were at my direction. I have reviewed the chart and agree that the record accurately reflects my personal performance of the history, physical exam, and medical decision making.
[2019-01-14 08:51] LABS: ANISOCYTOSIS SLIGHT; LYMPHOCYTE 7 % (20-40); MONOCYTE 5 % (0-10); NEUTROPHIL 88 % (50-75); PLATELET ESTIMATE NORMAL (NORMAL); TOTAL CELLS COUNTED 100
[2019-01-14 08:52] LABS: LARGE PLATELETS PRESENT
[2019-01-14] MEDS: Potassium & Sodium Phosphate PO SCH ×3 (09:13→17:16)
[2019-01-14] MEDS ORDERED: Potassium Chloride 20 mEq ER Tab PO SCH (10:00)
[2019-01-14] MEDS ORDERED: Potassium Phosphate 30 MMOLE in Sodium Chloride 0.9% 250 ML IV ONE (10:00)
[2019-01-15 06:28] LABS: INR 1.1; PARTIAL THROMBOPLASTIN TIME 35.4 SECONDS (21-34)
[2019-01-15 06:30] LABS: BASO % 0.2 % (0.0-2.0); EOS # 0.1 K/uL (0.0-0.7); EOS % 1.3 % (0.0-4.0); HEMOGLOBIN 10.2 g/dL (11.0-16.0); LYMPH # 0.6 K/uL (1.0-4.3); LYMPH % 7.7 % (20.0-40.0); MEAN CELL VOLUME 91.4 fL (81.0-99.0); MEAN CORPUSCULAR HEMOGLOBIN 30.3 pg (27.0-31.0); MEAN CORPUSCULAR HGB CONC 33.2 g/dL (33.0-37.0); MEAN PLATELET VOLUME 7.9 fL (7.2-11.7); MONO # 0.5 K/uL (0.0-0.8); MONO % 6.8 % (0.0-10.0); NEUT # 6.2 K/uL (1.8-7.0); PLATELET COUNT 148 K/uL (130-400); RBC 3.37 Mil/uL (3.80-5.20); RED CELL DISTRIBUTION WIDTH 13.5 % (11.5-14.5); WHITE BLOOD COUNT 7.3 K/uL (4.8-10.8)
[2019-01-15 06:34] LABS: ALB/GLOB RATIO 1.3 (1.0-2.1); ALBUMIN 2.9 g/dL (3.5-5.0); ALT/SGPT 228 U/L (9-52); AST/SGOT 126 U/L (14-36); BLOOD UREA NITROGEN 9 mg/dL (7-17); CALCIUM 7.8 mg/dl (8.6-10.4); GFR NON-AFRICAN AMERICAN > 60
[2019-01-15 07:37] VITALS: TEMP 98.4
[2019-01-15] MEDS: (Novolog) Insulin Aspart, Recombinant 100 u/ml 10 ml vial SC SCH (07:37)
[2019-01-15 08:10] LABS: BANDS 1 % (0-2); EOSINOPHIL 1 % (0-4); MONOCYTE 5 % (0-10); TOTAL CELLS COUNTED 100
[2019-01-15 08:11] LABS: LYMPHOCYTE 6 % (20-40); NEUTROPHIL 87 % (50-75); PLATELET ESTIMATE NORMAL (NORMAL)
--- NOTE | 2019-01-15 08:15 | CP.PCM.DIS ---
Provider - Provider Date of Admission: 01/12/19 06:04 Attending physician: Cameron Finch MD Primary care physician: Marissa Wise MD Time Spent in preparation of Discharge (in minutes): 45 Diagnosis - Discharge Diagnosis (1) Colon cancer Status: Acute (2) Liver metastasis Status: Acute (3) H/O resection of liver Status: Acute Hospital Course - Lab Results Lab Results: Micro Results 01/12/19 18:59 Nose MRSA Culture (Admit) - Final MRSA NOT DETECTED Most Recent Lab Values WBC 7.3 K/uL (4.8-10.8) 01/15/19 06:17 RBC 3.37 Mil/uL (3.80-5.20) L 01/15/19 06:17 Hgb 10.2 g/dL (11.0-16.0) L 01/15/19 06:17 Hct 30.9 % (34.0-47.0) L 01/15/19 06:17 MCV 91.4 fL (81.0-99.0) 01/15/19 06:17 MCH 30.3 pg (27.0-31.0) 01/15/19 06:17 MCHC 33.2 g/dL (33.0-37.0) 01/15/19 06:17 RDW 13.5 % (11.5-14.5) 01/15/19 06:17 Plt Count 148 K/uL (130-400) 01/15/19 06:17 MPV 7.9 fL (7.2-11.7) 01/15/19 06:17 Neut % (Auto) 84.0 % (50.0-75.0) H 01/15/19 06:17 Lymph % (Auto) 7.7 % (20.0-40.0) L 01/15/19 06:17 [place] % (Auto) 6.8 % (0.0-10.0) 01/15/19 06:17 Eos % (Auto) 1.3 % (0.0-4.0) 01/15/19 06:17 Baso % (Auto) 0.2 % (0.0-2.0) 01/15/19 06:17 Neut # (Auto) 6.2 K/uL (1.8-7.0) 01/15/19 06:17 Lymph # (Auto) 0.6 K/uL (1.0-4.3) L 01/15/19 06:17 [place] # (Auto) 0.5 K/uL (0.0-0.8) 01/15/19 06:17 Eos # (Auto) 0.1 K/uL (0.0-0.7) 01/15/19 06:17 Baso # (Auto) 0.0 K/uL (0.0-0.2) 01/15/19 06:17 Neutrophils % (Manual) 87 % (50-75) H 01/15/19 06:17 Band Neutrophils % 1 % (0-2) 01/15/19 06:17 Lymphocytes % (Manual) 6 % (20-40) L 01/15/19 06:17 Monocytes % (Manual) 5 % (0-10) 01/15/19 06:17 Eosinophils % (Manual) 1 % (0-4) 01/15/19 06:17 Toxic Granulation Present 01/13/19 06:21 Platelet Estimate Normal (NORMAL) 01/15/19 06:17 Large Platelets Present 01/14/19 05:56 RBC Morphology Normal 01/15/19 06:17 Polychromasia Slight 01/13/19 06:21 Basophilic Stippling Slight 01/13/19 06:21 Anisocytosis (manual) Slight 01/14/19 05:56 PT 12.0 SECONDS (9.7-12.2) 01/15/19 06:17 INR 1.1 01/15/19 06:17 APTT 35.4 SECONDS (21-34) H 01/15/19 06:17 Puncture Site A line 01/12/19 14:56 pCO2 44 mm/Hg (35-45) 01/12/19 14:56 pO2 102 mm/Hg (80-100) H 01/12/19 14:56 HCO3 19.3 mmol/L (21-28) L 01/12/19 14:56 ABG pH 7.26 (7.35-7.45) L 01/12/19 14:56 ABG Total CO2 21.1 mmol/L (22-28) L 01/12/19 14:56 ABG O2 Saturation 98.8 % (95-98) H 01/12/19 14:56 ABG Base Excess -7.2 mmol/L (-2.0-3.0) L 01/12/19 14:56 Aftab Test Na 01/12/19 14:56 ABG Potassium 3.9 mmol/L (3.6-5.2) 01/12/19 14:56 Sodium 140.0 mmol/l (132-148) 01/12/19 14:56 Chloride 111.0 mmol/L (98-107) H 01/12/19 14:56 Glucose 245 mg/dl (65-105) H 01/12/19 14:56 Lactate 1.6 mmol/L (0.7-2.1) 01/12/19 14:56 Liter Flow 3.0 01/12/19 14:56 Sodium 135 mmol/L (132-148) 01/15/19 06:07 Potassium 3.7 mmol/L (3.6-5.2) 01/15/19 06:07 Chloride 102 mmol/L (98-107) 01/15/19 06:07 Carbon Dioxide 26 mmol/L (22-30) 01/15/19 06:07 Anion Gap 12 (10-20) 01/15/19 06:07 BUN 9 mg/dL (7-17) 01/15/19 06:07 Creatinine 0.6 mg/dL (0.7-1.2) L 01/15/19 06:07 Est GFR ( Amer) > 60 01/15/19 06:07 Est GFR (Non-Af Amer) > 60 01/15/19 06:07 POC Glucose (mg/dL) 263 mg/dL (65-110) H 01/12/19 14:55 Random Glucose 121 mg/dL (65-105) H 01/15/19 06:07 Calcium 7.8 mg/dl (8.6-10.4) L 01/15/19 06:07 Phosphorus 2.4 mg/dL (2.5-4.5) L 01/15/19 06:07 Magnesium 2.0 mg/dL (1.6-2.3) 01/15/19 06:07 Total Bilirubin 0.5 mg/dL (0.2-1.3) 01/15/19 06:07 AST 126 U/L (14-36) H D 01/15/19 06:07 ALT 228 U/L (9-52) H D 01/15/19 06:07 Alkaline Phosphatase 116 U/L (38-126) 01/15/19 06:07 Total Protein 5.1 g/dL (6.3-8.3) L 01/15/19 06:07 Albumin 2.9 g/dL (3.5-5.0) L 01/15/19 06:07 Globulin 2.2 gm/dL (2.2-3.9) 01/15/19 06:07 Albumin/Globulin Ratio 1.3 (1.0-2.1) 01/15/19 06:07 Arterial Blood Potassium 3.9 mmol/L (3.6-5.2) 01/12/19 14:56 Blood Type A POSITIVE 01/12/19 07:02 Antibody Screen Negative 01/12/19 07:02 Discharge Exam - Head Exam Head Exam: ATRAUMATIC, NORMAL INSPECTION, NORMOCEPHALIC Discharge Plan - Discharge Medications Prescriptions: HYDROmorphone [Dilaudid 2 mg Tab] 2 mg PO Q4H #20 tab - Follow Up Plan Condition: GOOD Disposition: HOME/ ROUTINE Instructions: Hepatic Resection, Hydromorphone, Colostomy Care Additional Instructions: Take dilaudid as prescribed for pain Resume home medications as previously prescribed May remove bandage at drain site in 1-2 days May shower keep area clean and dry No heavy lifting for 3-4 weeks f/u as outpatient in Dr. Wooten's office within 1-2 weeks Call the office for any issues Referrals: Cameron Finch MD [Staff Provider] - Marissa Wise MD [Primary Care Provider] -
[2019-01-15] MEDS: Potassium & Sodium Phosphate PO SCH (08:59)
[2019-01-15 13:03] VITALS: BP 148/69; PULSE 97; RESP 24; O2SAT 97
== END 2019-01-15 13:06 | disposition home or self-care (01) | DRG 421 ==
LOC: C.9S 01-12 06:04 → C.9I 01-12 16:34
PROVIDERS: ADMIT Surgery; ATTEND Surgery
PROC: 0FB04ZX Excision of Liver, Percutaneous Endoscopic Approach, Diagnostic (ICD-10-PCS; principal; 2019-01-12 08:00)
DX: C78.7 Secondary malignant neoplasm of liver and intrahepatic bile duct (principal); C19 Malignant neoplasm of rectosigmoid junction; Z85.038 Personal history of other malignant neoplasm of large intestine; E11.9 Type 2 diabetes mellitus without complications; E78.00 Pure hypercholesterolemia, unspecified; I10 Essential (primary) hypertension; K21.9 Gastro-esophageal reflux disease without esophagitis; Z93.3 Colostomy status; Z92.21 Personal history of antineoplastic chemotherapy